=== PATIENT | female | born 2000 | race Caucasian/White ===

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

== ENCOUNTER 2025-05-25 00:32 | Day surgery (SDC) | payer BC, SELFPAY ==
--- NOTE | 2025-05-15 13:53 | SUR.PREOP ---
Report to the Outpatient Waiting Room, entrance under the green pavilion located off [facility], at time _0700_ on date _05/25/2025_. Planned Procedure Time: _0900_.? Time changes happen often and if your time is changed the preop area will call you the afternoon before. - You and your visitor will be asked to self-screen and do not enter if you have any COVID symptoms. Please call surgeon if you need to reschedule. - A mask is optional within the hospital at this time. Patients may have clear liquids (water, carbonated beverages, clear teas, apple juice) until 3 hours (0600) prior to surgery with a maximum of 20 ounces. - No food from midnight until time of surgery and no smoking, or chewing tobacco (or any form of nicotine). No chewing gum, candy or mints. Take only the following medications with a SIP of water on the morning of surgery: _BUPROPION, CONTROL_ DO NOT STOP ANY OF YOUR OTHER PRESCRIPTION MEDICATIONS PRIOR TO SURGERY EXCEPT THE FOLLOWING Hold all vitamins and supplements for 3 days per anesthesiologist. Medications to discontinue per physician _NA_ Date to take last dose_NA_ Please no make-up, nail cayman islander, hairspray, perfume, deodorant, or body powder the day of surgery.? No jewelry (including any body piercings) or valuables the day of surgery, leave them at home.? Please take a shower or bath the night before, or the morning of, surgery with an antibacterial soap.? Wear comfortable, loose fitting clothing.? Children are encouraged to wear pajamas. - Jewelry must be removed prior to entering the operating room.? Rings and piercings that are not removed may be cut off. - The hospital will not accept responsibility for valuables.? - Please leave all valuables, including medications, at home the day of surgery. If you are going home after surgery, a licensed local company flatbed truck driver must drive you home.? - NO public transportation without another adult if you receive anesthesia. - We recommend that an adult stay with you for 24 hours following discharge. - We also recommend that you do not drive, make important decision, drink alcoholic beverages, or take any drugs that were not prescribed by your health care provider for at least 24 hours after your discharge time. Follow any additional instructions given to you from your surgeon. Telephone instructions given to _ALLY_and asked if any additional questions and then verbalized understanding. Patient advised to call surgeon office or pre surgery nurse liaison [phone] if any additional questions.
[2025-05-15 14:03] VITALS: BMI 25.1
--- NOTE | 2025-05-24 11:47 | P.HP_ITS ---
H&P: HPI History of Present Illness Date/Time: 05/24/25 11:47 Chief Complaint: Pelvic pain and dyspareunia Narrative: 24-year-old female with severe pelvic pain and dyspareunia admitted for diagnostic laparoscopy risks and benefits reviewed including not exclusive of , aspiration pneumonia, bleeding, transfusion, perforation injury to bowel, bladder, ureters, or other internal organs with need for open laparotomy. She received the ACOG handout entitled laparoscopy. She had all questions answered. She asked to proceed. Review of Systems Review of Systems: All systems reviewed & are unremarkable except as noted in HPI and below [facility] Social History Social History Smoking status: Never smoker Second hand tobacco smoke exposure: No Alcohol intake: current Alcohol use details: SOCIALLY Substance use: never Substance use type: does not use Living arrangements: with family Additional living arrangements comments: WITH FATHER Spiritual care concerns: No Meds Home Medications and Allergies Home Medications ?Medication ?Instructions ?Recorded ?Confirmed ?Type bupropion HCl 300 mg 24 hr tablet, 300 mg PO DAILY 05/15/25 05/15/25 History extended release norethindrone acetate 1 mg-ethinyl 1 tablet PO DAILY 05/15/25 05/15/25 History estradiol 20 mcg tablet Allergies Allergy/AdvReac Type Severity Reaction Status Date / Time No Known Allergies Allergy Unverified 05/15/25 13:46 Exam Const: General: cooperative, healthy appearing and comfortable Nutritional Appearance: average body habitus Orientation/consciousness: oriented to person, oriented to place and oriented to time HENMT: Head: normal to inspection Resp: Effort & Inspection: normal respiratory effort Cardio: Rate: regular rate Rhythm: regular rhythm Heart sounds: S1 normal heart sound present and S2 normal heart sound present GI: Inspection: normal to inspection Auscultation: normal bowel sounds : External Female Exam: normal external appearance Speculum Exam - Vagina: normal appearance of the vagina Speculum Exam - Cervix: normal appearance of the cervix Bimanual exam- vagina & uterus: uterine size normal Bimanual Exam- Adnexa, other: normal adnexae and tender bilaterally Assessment and Plan Assessment and plan (1) Pelvic pain: Code(s): R10.2 - Pelvic and perineal pain Status: Acute Plan Proceed with diagnostic laparoscopy
[2025-05-25] VITALS (8 sets, daily range): BP systolic 111–144; BP diastolic 70–92; PULSE 62–88; RESP 13–22; TEMP 36.4–36.6; O2SAT 99–100
--- OUTSIDE RECORDS SUMMARY | 2025-05-25 00:35 | XMS_ITS | Clinical Summary ---
Author Organization [facility] Address [address] [place] [address] Care Team Providers Care Historiographer Name Role Phone Pako Davidson MD Primary Care Provider [phone] Source Comments [facility],non-[facility] Affiliates and Associated Physician Practices is amultiple site organization consisting of ambulatory clinics and hospital sitesin [place], [place], [place] and [place]. This disclosure is being madepursuant to the Care Everywhere program and may not contain all information available regarding this patient. Last updated 18.[facility] Allergies No known active allergies Medications * Be aware that medications may not be up to date on this document. Alwaysverify current medications with the patient. No known medications Family History Medical History Relation Name Comments Thyroid Disease Mother Relation Name Status Comments Mother Social History Tobacco Use Types Packs/Day Years Used Date Smoking Tobacco: Never Smokeless Tobacco: Never Chew Comments:non smoking househo ld Comments No Sex and Gender Information Value Date Recorded Sex Assigned at Not on file Legal Sex Female 12:58 PM CDT Gender Identity Not on file Sexual Orientation Not on file Last Filed Vital Signs Vital Sign Reading Time Taken Comments Blood Pressure 118/72 12/27/2019 3:26 PM POCKET MARKER Pulse 89 12/27/2019 3:26 PM POCKET MARKER Temperature 36.9 C (98.5 F) 12/27/2019 3:26 PM POCKET MARKER Respiratory Rate 16 12/27/2019 3:26 PM POCKET MARKER Oxygen Saturation 98% 12/27/2019 3:26 PM POCKET MARKER Inhaled Oxygen Concentration - - Weight 64 kg (141 lb) 12/27/2019 3:26 PM POCKET MARKER Height 174 cm (5' 8.5) 12/27/2019 3:26 PM POCKET MARKER Body Mass Index 21.13 12/27/2019 3:26 PM POCKET MARKER Plan of Treatment Health Maintenance Due Date Last Done Comments HIV SCREENING 2017 HPV VACCINE (1 - 3-dose series) 2017 CHLAMYDIA/GONORRHEA SCREENING 2018 MENINGOCOCCAL (Group B) VACCINE SHARED DECISION-MAKING (1 of 2 - Standard) 2018 HEPATITIS C SCREENING 05/23/2020 DTAP/TDAP/TD VACCINES (1 - Tdap) 2021 HEPATITIS B VACCINE (1 of 3 - 19+ 3-dose series) 2021 COVID-19 VACCINE (1 - 2023-2 5 season) 2024 DEPRESSION SCREENING 11/15/2024 INFLUENZA VACCINE (Season Ended) 2025 11/01/2008, 10/04/2008 ZOSTER VACCINE (1 of 2) 2052 HIB VACCINE Aged Out No longer eligi ble based on patient's age to complete this topic MENINGOCOCCAL GROUPS A/C/Y/W VACCINE Aged Out No longer eligible b ased on patient's age to complete this topic PNEUMOCOCCAL VACCINE Aged Out No long er eligible based on patient's age to complete this topic Insurance [employer] Care Teams Historiographer Relationship Specialty Start Date End Date Pako Davidson MD [address] [place] [address] PCP - General Pediatrics 07/09/17
--- OUTSIDE RECORDS SUMMARY | 2025-05-25 00:35 | XMS_ITS | Clinical Summary ---
Author Organization [facility] Address [facility] [place] [address] Care Team Providers Care Cafe Cook Name Role Phone Shay Ochoa MD Primary Care Provider Unavailabl e Allergies No known active allergies Medications amphetamine-dextro amphetamine 10 MG tabletIndications: Attention deficit hyperactivity disorder (ADHD), combined type Take 1 tablet (10 mg total) by mouth daily. 30 tablet 1 Active ondansetron (ZOFRAN) 4 MG tabletIndications: Non-intractable vomiting with nausea, unspecified vomiting type Take 1 tablet (4 mg total) by mouth every 8 (eight) hours as needed for Nausea. 20 tablet 1 Active Active Problems Problem Noted Date Diagnosed Date Adjustment reaction with anxiety and depression 01/27/2021 Attention deficit hyperactiv ity disorder (ADHD), combined type 01/27/2021 Family History Medical History Relation Comments Cancer Paternal Aunt Heart Disease Paternal Grandfather Relation Status Comments Paternal Aunt Paternal Grandfather Social History Tobacco Use Types Packs/Day Years Used Date Smoking Tobacco: Never Smokeless Tobacco: Never Tobacco Cessation:Counseling Given: Yes Alcohol Use Standard Drinks/Week Comments Not Currently 0 (1 standard drink = 0.6 oz pur e alcohol) PHQ-2 Answer Date Recorded PHQ-2 Score - If the patient scores above 3, please move on to questions 3-9 4 01/27/2021 Comments Unknown Sex and Gender Information Value Date Recorded Sex Assigned at Not on file Legal Sex Female 12:02 PM PRODUCTION SHIFT SUPERVISOR Gender Identity Not on file Sexual Orientation Not on file Last Filed Vital Signs Vital Sign Reading Time Taken Comments Blood Pressure 108/66 03/24/2021 3:09 PM CDT Pulse 69 03/24/2021 3:09 PM CDT Temperature 36.7 C (98.1 F) 03/24/2021 3:09 PM CDT Respiratory Rate 16 03/24/2021 3:09 PM CDT Oxygen Saturation 100% 03/03/2021 1:38 PM CDT Inhaled Oxygen Concentration - - Weight 67.6 kg (149 lb) 03/24/2021 3:09 PM CDT Height 172.7 cm (5' 8) 03/24/2021 3:09 PM CDT Body Mass Index 22.66 03/24/2021 3:09 PM CDT Plan of Treatment Health Maintenance Due Date Last Done Comments Cervical Cancer Screening Pa p Smear (Age 21 to 29) Every 3 Years 2002 Cervical Cancer Screening 2002 Meningococcal B Vaccine (1 o f 2 - Standard) 2018 HPV Vaccines (2 - 3-dose series) 08/09/2019 07/12/2019 Hepatitis C 2020 DTaP, Tdap and Td Vaccines ( 1 - Tdap) 2021 Hepatitis B Vaccines (1 of 3 - 19+ 3-dose series) 2021 Annual Physical 03/24/2022 03/24/2021 COVID-19 Vaccine (3 - 2023-2 5 season) 2024 02/05/2021, 01/14/2021 Pneumococcal Vaccine: Pediatrics (0 to 5 Years) and At-Risk Patients (6 to 49 Years) Completed 12/21/2003, 08/29/2003, 2002 Meningococcal Vaccine Completed 12/07/2019 , 06/27/2014 RSV Immunizations Under 20 Months Aged Out No longer eligible b ased on patient's age to complete this topic Insurance [facility] Care Teams Cafe Cook Relationship Specialty Start Date End Date Shay Ochoa MD PCP - General FAMILY MEDICINE SPORTS MEDICINE 01/23/21
--- OUTSIDE RECORDS SUMMARY | 2025-05-25 00:35 | XMS_ITS | Clinical Summary ---
Author Organization [facility] Address [address] [place] [address] Phone Care Team Providers Care Casting Inspector Name Role Phone Esperanza Robb APRN, FARRUKH Primary Care Pro vider Allergies No known active allergies Medications No known medications Active Problems No known active problems Immunizations Immunization Administration Dates Next Due Covid-19, Mrna, Lnp-s, Pf, 30 Mcg/0.3 Ml Dose (P fizer) 11/19/2021 Social History Tobacco Use Types Packs/Day Years Used Date Smoking Tobacco: Never Smokeless Tobacco: Never Comments No Sex and Gender Information Value Date Recorded Sex Assigned at Not on file Legal Sex Female 3:18 PM PSYCHOLOGY INSTRUCTOR Gender Identity Not on file Sexual Orientation Not on file Last Filed Vital Signs Vital Sign Reading Time Taken Comments Blood Pressure 120/64 10/06/2020 3:49 PM PSYCHOLOGY INSTRUCTOR Pulse 96 10/06/2020 3:49 PM PSYCHOLOGY INSTRUCTOR Temperature 36.7 C (98.1 F) 10/06/2020 3:49 PM PSYCHOLOGY INSTRUCTOR Respiratory Rate 14 10/06/2020 3:49 PM PSYCHOLOGY INSTRUCTOR Oxygen Saturation 98% 10/06/2020 3:49 PM PSYCHOLOGY INSTRUCTOR Inhaled Oxygen Concentration - - Weight - - Height - - Body Mass Index - - Plan of Treatment Health Maintenance Due Date Last Done Comments Hepatitis C Virus (HCV) Screening 2002 Meningococcal B Immunization (1 of 2 - Standard) 2018 Human Papillomavirus (HPV) Immunization (2 - 3-dose series) 08/09/2019 07/12/2019 Hepatitis B Immunization (1 of 3 - 19+ 3-dose series) 2021 SARS-COV-2 Immunization ( season) 2024 11/19/2021, 02/05/2021, 01/14/2021 Influenza Immunization (#1) 2025 Respiratory Syncytial Virus (RSV) Immunization (Adult) (1 - 1-dose 75+ series) 2077 Pneumococcal Immunization Combined Completed 12/21/2003, 08/29/2003, 2002 Hepatitis A Immunization Discontinued 07/22/2005 Measles Mumps Rubella (MMR) Immunization Discontinued 05/16/2007, 08/29/2003 Varicella Immunization Discontinued 05/16/2007, 2002 DTaP/Tdap/Td Immunization Discontinued 2012, 05/16/2007, 12/21/2003, Additional history exists TdaP Immunization Completed 08/25/2013 Meningococcal Immunization (ACWY) Completed 12/07/2019, 06/27/2014 Rotavirus Immunization Aged Out No lo nger eligible based on patient's age to complete this topic Insurance [facility] [[email or web address] [place] [id number] Care Teams Casting Inspector Relationship Specialty Start Date End Date Esperanza Robb, PACU RN, PATIENT BILLER [address] [place] [address] PCP - General Certified Nurse Practitioner 10/06/20
--- NOTE | 2025-05-25 06:43 | WPDHPUPDATE1 ---
History and Physical Update Update Date/Time: 05/25/25 06:43 History and Physical has been reviewed, including an updated exam of the patient. There are NO changes in the patient's condition. Risks, benefits, and alternatives have been discussed and questions answered. Patient agrees to proceed with procedure.
[2025-05-25] MEDS: LACTATED RINGERS 1,000 ML 30 ML IV CONT ×2 (07:30→09:38)
[2025-05-25] MEDS: KETOROLAC 15 MG/ML VIAL (*BKC) IV PUSH (08:00)
[2025-05-25] MEDS: ACETAMINOPHEN 500 MG TABLET 1000 MG PO (08:00)
[2025-05-25 08:05] LABS: BEDSIDEPREGUCG Negative (Negative)
[2025-05-25] MEDS: SCOPOLAMINE 1 MG PATCH 1 PATCH TRANSDERM (08:08)
--- NOTE | 2025-05-25 08:10 | WPDANESEPPF ---
Anes - Initial Pre Proc Eval Procedure: Operation Date: 05/25/25 09:00 Proposed Procedures p Diagnostic Laparoscopy - Henri Carcamo MD Date/Time: 05/25/25 08:10 Surgeon: Henri Carcamo MD Pre Op Diagnosis: left lower side pelvic pain, Reg pelvic pain Patient Data Age: 24 Gender: F Height: 1.75 m Weight: 89.5 kg Last Vital Signs Temp 36.4 C 05/25/25 07:16 Pulse 84 05/25/25 07:16 Resp 16 05/25/25 07:16 BP 122/85 05/25/25 07:16 Pulse Ox 100 05/25/25 07:16 O2 Del Method Room Air 05/25/25 07:16 Allergies Allergy/AdvReac Type Severity Reaction Status Date / Time No Known Allergies Allergy Unverified 05/25/25 08:00 Home Medications ?Medication ?Instructions ?Recorded ?Confirmed ?Type bupropion HCl 300 mg 24 hr tablet, 300 mg PO DAILY 05/15/25 05/25/25 History extended release norethindrone acetate 1 mg-ethinyl 1 tablet PO DAILY 05/15/25 05/25/25 History estradiol 20 mcg tablet hydrocodone 5 mg-acetaminophen 325 1 tablet PO Q4H PRN pain #20 tabs 05/25/25 Rx mg tablet Laboratory Tests 05/25/25 08:03 POC Urine HCG, Qual Negative (Negative) Patient hx anesthesia problems: none Family hx anesthesia problems: none Results Review: All pre-operative results and documents have been reviewed as part of the pre-operative evaluation. [facility] Past Medical History Medical History (Updated 05/25/25 @ 08:11 by Henri Peña MD) Anxiety Overweight Social History Social History Smoking status: Never smoker Second hand tobacco smoke exposure: No Alcohol intake: current Alcohol use details: SOCIALLY Substance use: never Substance use type: does not use Living arrangements: with family Additional living arrangements comments: WITH FATHER Spiritual care concerns: No Anes - Eval Final PreProcedure Day of Procedure 05/25/25 08:10 Patient weight: overweight Heart: regular rate and rhythm Lungs: clear to auscultation Airway: Mallampati scale class II Neurological: alert and oriented Last oral intake: >/= 8 hours ASA classification: II Emergent: no Anesthetic plan: proceed Anesthesia type and monitoring: general ETT and standard monitoring Results Review: All pre-operative results and documents have been reviewed as part of the pre-operative evaluation. Informed Consent: The patient's anesthetic plan and its attendant risks and benefits were discussed with the patient/family/POA. Questions were solicited and answers provided to the satisfaction of the patient/family/POA.
--- NOTE | 2025-05-25 09:29 | P.OP_ITS ---
Procedure Note - Detailed Date of Procedure 05/25/25 Pre-op Diagnosis left lower side pelvic pain, Reg pelvic pain Post-op Diagnosis Same (Pelvic pain/left ovarian cyst/adhesions) Procedure Performed Laparoscopy with destruction of left ovarian cyst and lysis of adhesions Surgeon Henri Carcamo MD Anesthesia General Indications 24 female pelvic pain and does probe hernia Findings Normal-appearing uterus tubes small left ovarian cyst. Multiple adhesions e specially in the right. Left-sided adhesions as well. Normal-appearing liver edge gallbladder and appendix Description of Procedure Patient was prepped draped in normal sterile fashion placed in the dorsal lithotomy position. Under excellent general trach anesthesia weighted speculum placed in posterior fornix vagina. Anterior lip of the cervix grasped with single-tooth tenaculum. Ordoñez's cannula inserted the cervix and attached to the single-tooth to be used later for uterine manipulation. After emptying the bladder robot 500cc of clear urine the weighted speculum was removed the gloves were changed. And from below incision made. Veress needle passed in the abdomen. Abdomen filled with CO2 gas [id number]. The 5mm trocar advanced under direct visualization with the Optiview. No injury seen. Patient placed in Trendelenburg and a suprapubic incision made. 5mm trocar advanced under direct visualization assuring no injury. Multiple adhesions were seen on the left and the right and using sharp dissection with years endo Irineo these were sharply dissected. A small right left ovarian cyst was noted and this was drained of cl ear fluid. No other abnormalities were seen. Lower site removed. The gas removed from the abdomen. The upper site removed. The incisions closed with 4 Monocryl and glue the patient went to recovery in satisfactory condition. All sponge, needle, instrument counts were correct. There were no immediate complications Estimated Blood Loss 5 Drains No Packing No Pathology None sent Complications No immediate complications Condition Stable Disposition PACU
[2025-05-25] MEDS: fentaNYL CITRATE INJ (*CRX) 100 MCG/2 ML VIAL 25 MCG IV PUSH ×3 (09:48→09:52)
[2025-05-25] MEDS: MIDAZOLAM HCL (*CRX) 2 MG/2 ML VIAL 1 MG IV PUSH ×2 (09:59→10:10)
== END 2025-05-25 11:38 | disposition home or self-care (01) ==
PROVIDERS: Visit Provider Obstetrics & Gynecology
PROC: (CPT 49320; principal; 2025-05-25 09:00)
DX: N73.6 Female pelvic peritoneal adhesions (postinfective) (principal); N83.202 Unspecified ovarian cyst, left side
CPT/HCPCS: 58662; 36415; 86850; 86900; 86901; A9270; J1100; J1885; J2003; J2250; J2405; J2704; J3010; J7030; J7120